=== PATIENT | female | born 1930 | race Caucasian/White ===

== ENCOUNTER 2018-07-19 09:00 | Inpatient (IN) | payer MEDICARE ==
[~2018-07-19] VITALS: Ht 162.6 cm; Wt 55.8 kg
--- OUTSIDE RECORDS SUMMARY | ~2018-07-19 | XMS | Clinical Summary ---
Demographics + + + | Address | [address] | | | [place] [address] | + + + | Home Phone | | + + + | Preferred Language | Unknown | + + + | Marital Status | | + + + | Holiness Affiliation | Unknown | + + + | Race | Unknown | + + + | Ethnic Group | Unknown | + + + Author + + + | Author | [facility] | | | and [place] | + + + | Organization | [facility] | | | and [place] | + + + | Address | Unknown | + + + | Phone | Unavailable | + + + Support + + +---------+ + | Name | Relationship | Address | Phone | + + +---------+ + | Jina Jha | NORMA | Unknown | | + + +---------+ + Care Team Providers + +------+ + | Care Instructor Adjunct Surgical Technician Name | Role | Phone | + +------+ + | Pcp, Prov Inactive | PP | | + +------+ + Allergies + + + + + + | Active Allergy | Reactions | Severity | Noted | Comments | | | | | Date | | + + + + + + | Codeine | Nausea And Vomiting | | 10/19/19 | | | | | | 15 | | + + + + + + Medications + + + +---------+------+------+-------+ | Medication | Sig | Dispensed | Refills | Star | End | Statu | | | | | | t | Date | s | | | | | | Date | | | + + + +---------+------+------+-------+ | ALPHA LIPOIC ACID | Take 1 tablet by | | 0 | | | Activ | | PO | mouth Daily. | | | | | e | + + + +---------+------+------+-------+ | Cholecalciferol | Take 2,000 Units by | | 0 | | | Activ | | (VITAMIN D-3) 2000 | mouth Daily. | | | | | e | | units CAPS | | | | | | | + + + +---------+------+------+-------+ | thiamine (VITAMIN | Take 100 mg by mouth | | 0 | | | Activ | | B-1) 100 mg tablet | Daily. | | | | | e | + + + +---------+------+------+-------+ | Ranitidine HCl | Take 1 tablet by | | 0 | | | Activ | | (RANITIDINE 75 PO) | mouth Daily. | | | | | e | + + + +---------+------+------+-------+ | nitroglycerin | Place 1 tablet under | 25 | 0 | 08/3 | | Activ | | (NITROSTAT) 0.4 mg | the tongue every 5 | tablet | | 1/20 | | e | | SL | minutes as needed | | | 15 | | | | tabletIndications: | for Chest pain. | | | | | | | Coronary artery | Place 1 tablet under | | | | | | | disease due to | the tongue every 5 | | | | | | | calcified coronary | minutes as needed | | | | | | | lesion | for Chest pain. | | | | | | + + + +---------+------+------+-------+ | aspirin 325 mg | Take 325 mg by mouth | | 0 | | | Activ | | tablet | Daily. | | | | | e | + + + +---------+------+------+-------+ | | Take 1 tablet by | | 0 | | | Activ | | diphenhydrAMINE-acet | mouth nightly as | | | | | e | | aminophen (TYLENOL | needed. | | | | | | | PM EXTRA STRENGTH) | | | | | | | | 25-500 MG TABS | | | | | | | + + + +---------+------+------+-------+ | atorvaSTATin | Take 1 tablet by | 90 | 1 | 01/0 | | Activ | | (LIPITOR) 20 mg | mouth nightly. | tablet | | 5/20 | | e | | tabletIndications: | | | | 16 | | | | Mixed hyperlipidemia | | | | | | | + + + +---------+------+------+-------+ | benazepril | Take 1 tablet by | 90 | 1 | 01/0 | | Activ | | (LOTENSIN) 10 mg | mouth Daily. 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 | | + + + | Bilateral carotid artery stenosis | 11/16/2014 | + + + | Chronic kidney disease, stage III (moderate) | 11/16/2014 | + + + | Decreased GFR | 11/15/2014 | + + + | Bilateral carotid artery stenosis | 10/26/2014 | + + + | Routine general medical examination at a health care facility | 10/18/2014 | + + + + + | Overview: DEXA: Never | | Colonoscopy: Never | | Immunizations: UTD | | Mammo: Several years | | Pap: Several years | | Occupation: Retired | | Marital Status: | | Children: 1 | | Exercise: Normal activities | | Sunscreen: Never | | Caffeine: 4 cups daily | | Seatbelt Use: 100% | + + + + + | Essential hypertension | 10/18/2014 | + + + | Bilateral carotid bruits | 10/18/2014 | + + + | COPD (chronic obstructive pulmonary disease) | 10/18/2014 | + + + | Nicotine dependence, uncomplicated | 10/18/2014 | + + + Immunizations + + + + | Name | Dates Previously Given | Next Due | + + + + | INFLUENZA QUADR | 08/02/2014 | | | W/PRES | | | | (PED/ADOL/ADULT) | | | | MULTIDOSE | | | + + + + Family History + + +------+ + | Medical History | Relation | Name | Comments | + + +------+ + | Early | Brother | | | + + +------+ + | Early | Father | | | + + +------+ + | Heart disease | Father | | | + + +------+ + | Early | Mother | | | + + +------+ + | Heart disease | Mother | | | + + +------+ + + +------+ + + | Relation | Name | Status | Comments | + +------+ + + | Brother | | | | + +------+ + + | Father | | | | + +------+ + + | Mother | | | | + +------+ + + Social History + +-------+ +--------+ + | Tobacco Use | Types | Packs/Day | Years | Date | | | | | Used | | + +-------+ +--------+ + | Former Smoker | | 0.1 | 41 | Quit: 10/19/2014 | + +-------+ +--------+ + + +---+---+---+ | Smokeless Tobacco: | | | | | Never Used | | | | + +---+---+---+ + + | Tobacco Cessation: Ready to Quit: Yes | | Comments: Patient is working on quiting smoking. 3 cigs daily | + + + + +---------+ + | Alcohol Use | Drinks/We | oz/Week | Comments | | | ek | | | + + +---------+ + | No | 0 | 0.0 | | | | Standard | | | | | drinks or | | | | | | | | | | equivalen | | | | | t | | | + + +---------+ + + + + | Sex Assigned at | Date Recorded | | | | + + + | Not on file | | + + + + + + + | Job Start Date | Occupation | Industry | + + + + | Not on file | Not on file | Not on file | + + + + + + + + | Travel History | Travel Start | Travel End | + + + + + + | No recent travel history available. | + + Last Filed Vital Signs + + + + | Vital Sign | Reading | Time Taken | + + + + | Blood Pressure | 124/62 | 05/12/2015912 PDT | + + + + | Pulse | 89 | 05/12/2015912 PDT | + + + + | Temperature | 36.8 C (98.3 F) | 05/12/2015912 PDT | + + + + | Respiratory Rate | 18 | 05/12/2015912 PDT | + + + + | Oxygen Saturation | 99% | 05/12/2015912 PDT | + + + + | Inhaled Oxygen | - | - | | Concentration | | | + + + + | Weight | 55.4 kg (122 lb 1.6 | 05/12/2015912 PDT | | | oz) | | + + + + | Height | 162.6 cm (5' 4") | 05/12/2015912 PDT | + + + + | Body Mass Index | 20.96 | 05/12/2015912 PDT | + + + + Plan of Treatment + + + + + | Health Maintenance | Due Date | Last Done | Comments | + + + + + | Vaccine: | | | | | Dtap/Tdap/Td (1 - | 9 | | | | Tdap) | | | | + + + + + | Vaccine: Zoster (1 | | | | | of 2) | 0 | | | + + + + + | Vaccine: | | | | | Pneumococcal 65+ | 5 | | | | Low/Medium Risk (1 | | | | | of 2 - PCV13) | | | | + + + + + | Vaccine: Influenza | | 08/02/2014 | | | (Season Ended) | 9 | | | + + + + + Results Not on filefrom Last 3 Months Insurance + +--------+ +--------+ +---------+--------+ | Payer | Benefi | Subscriber | Effect | Phone | Address | Type | | | t Plan | ID | kelly | | | | | | / | | Dates | | | | | | Group | | | | | | + +--------+ +--------+ +---------+--------+ | MEDICARE | MEDICA | [id number] | 04/18/18 | [phone] | | Medica | | | RE | | 95-Pre | 5 | | re | | | PART A | | sent | | | | | | AND B | | | | | | + +--------+ +--------+ +---------+--------+ + +--------+ +--------+ + + | Guarantor Name | Accoun | Relation to | Date | Phone | Billing Address | | | t Type | Patient | of | | | | | | | | | | + +--------+ +--------+ + + | Leena Jha | Person | Self [birth year] | [address] | | | al/Fam | | 1931 | [phone] | [place] [address] | | | paula | | | 5 (Home) | | + +--------+ +--------+ + + Advance Directives Patient has advance care planning documents on file. For more information, please contact:[facility] [address]
--- OUTSIDE RECORDS SUMMARY | ~2018-07-19 | XMS | Clinical Summary ---
Demographics + + + | Address | [address] | | | [place] [address] | + + + | Home Phone | | + + + | Preferred Language | Unknown | + + + | Marital Status | | + + + | Congregation Affiliation | Unknown | + + + | Race | Unknown | + + + | Ethnic Group | Unknown | + + + Author + + + | Author | [facility] | | | and [place] | + + + | Organization | [facility] | | | and [place] | [...] Team Providers + +------+ + | Care Rheologist Name | Role | Phone | + [...] +--------+ +---------+--------+ | MEDICARE | MEDICA | [id number] | 04/18/18 | [phone] | | Medica [...] Person | Self | [birth year] | [address] | | | al/Fam | | 1931 | [phone] | [place] [address] | | | paula | | | 5 (Home) | | + +--------+ +--------+ + + Advance Directives Patient has advance care planning documents on file. For more information, please contact:[facility] [address] [place] [address]
--- OUTSIDE RECORDS SUMMARY | ~2018-07-19 | XMS | Clinical Summary ---
Demographics + + + | Address | [address] | | | [place] [address] | + + + | Home Phone | | + + + | Preferred Language | Unknown | + + + | Marital Status | | + + + | Confucianism Affiliation | Unknown | + + + | Race | Unknown | + + + | Ethnic Group | Unknown | + + + Author + + + | Author | [facility] | | | and [place] | + + + | Organization | [facility] | | | and [place] | [...] Team Providers + +------+ + | Care Cellophane Wrapping Examiner Name | Role | Phone | + [...] +--------+ +---------+--------+ | MEDICARE | MEDICA | [id number] | 04/18/18 | [phone] | | Medica [...] Person | Self | [birth year] | [address] | | | al/Fam | | 1931 | [phone] | [place] [address] | | | paula | | | 5 (Home) | | + +--------+ +--------+ + + Advance Directives Patient has advance care planning documents on file. For more information, please contact:[facility] [place] [address]
[~2018-07-19 09:00] MED LIST: ADVAIR 250-501 EACH INH; ASPIRIN EC325 MG PO; DELTASONE20 MG PO; IPRAT-ALBUT 0.5-3 ML INH; NICORETTE4 M2 BUCCAL; PREDNISONE20 MG PO; SPIRIVA18 MCG INH; VENTOLIN HFA18 GM INH; ZANTAC 7575 MG PO; ZITHROMAX250 MG PO; ZOFRAN ODT4 MG PO
--- OUTSIDE RECORDS SUMMARY | 2018-07-19 09:04 | XMS ---
PreManage Notification: TAMERA CANDELARIA Security Rn Clinician Events No recent Security Events currently on file CRITERIA MET - [facility] - Has Care Guidelines CARE PROVIDERS VASYL AGUILERA Hospitalist 05/20/2018-Current PHONE: Unknown Selene has no Care Guidelines for this patient. Care History Medical/Surgical 05/20/2018 [facility] - Patient is currently established with [facility]. If patient is seen in the ED during business hours. Please contact CHWs at [facility]. Care Recommendation: This patient has had 5 or more Emergency Department visits in the last 12 months.\T\nbsp; Patient requires education on the scope and purpose of the ED as an acute care provider not a Primary Care Provider and should not be utilized for chronic conditions.\T\nbsp; These are guidelines and the provider should exercise clinical judgment when providing care. E.D. VISIT COUNT (12 MO.) 3 [facility] TOTAL 3 NOTE: Visits indicate total known visits. ED/UCC VISIT TRACKING (12 MO.) 07/19/2018 09:01 [facility] TYPE: Emergency COMPLAINT: - SOB 05/14/2018 09:08 [facility] [place] TYPE: Emergency COMPLAINT: - SOB, COUGH 11/30/2017 13:17 [facility] [place] TYPE: Emergency COMPLAINT: - DIFFICULTY BREATHING DIAGNOSES: - Chronic obstructive pulmonary disease with (acute) exacerbation - Nicotine dependence, unspecified, uncomplicated - FPC (current) use of aspirin - Cough - Allergy status to narcotic agent status INPATIENT VISIT TRACKING (12 MO.) 05/14/2018 09:[address] [facility] [place] TYPE: Observation COMPLAINT: - ACUTE/CHRONIC COPD DIAGNOSES: - Atherosclerotic heart disease of [place] coronary artery without angina pectoris - Presence of coronary angioplasty implant and graft - Emphysema, unspecified - Personal history of nicotine dependence - Shortness of breath - intermediate designer (current) use of aspirin - Allergy status to narcotic agent status - Other terminal block assembler (current) drug therapy - FPC (current) use of inhaled steroids [email or web address]
--- NOTE | 2018-07-19 15:01 | EKG ---
[facility] [address] [facility] [address] [place] [address] Signed Sinus tachycardia Left axis deviation Low voltage QRS Abnormal ECG When compared with ECG of 30-NOV-2017 13:25, ST less depressed in Inferior leads Nonspecific T wave abnormality no longer evident in Anterior leads Confirmed by ELKE LOPES DO ([id number]) on 07/19/2018 3:01:11 PM Electronically Signed By: ELKE LOPES DO 07/19/18 1501 PATIENT NAME: TAMERA CANDELARIA SANDRA Electrocardiogram DATE OF : [birth year] PHYSICIAN: ELKE LOPES DO REPORT #: [id number] REPORT IS CONFIDENTIAL AND NOT TO BE RELEASED WITHOUT AUTHORIZATION
--- NOTE | 2018-07-19 15:58 | NUR ---
report from soren lópez at this time.
--- NOTE | 2018-07-19 16:05 | NUR ---
pt arrived to m/s room 114 at this time, alert and oriented, up to bathroom.
--- NOTE | 2018-07-19 16:55 | NUR ---
pt sitting at side of bed watching tv, no distress at this time at rest, 2l oxygen per n.c.
--- NOTE | 2018-07-19 19:10 | NUR ---
SHIFT REPORT RECIEVD. PATIENT RESTING IN BED. REPORTS FEELING VERY SOB AFTER AMBULATING TO THE BATHROOM RECENTLY. DISCUSSED USE OF BSC FOR THE NIGHT. HYDRO EXCAVATION OPERATOR MAY LOCATED ONE FOR THE PATIENT'S ROOM. NO OTHER NEEDS AT THIS TIME. PATIENT APPEARS TO BE IN NO RESPIRTORY DISTRESS AT THIS TIME.
--- NOTE | 2018-07-19 20:30 | NUR ---
EVENING MEDS PROVIDED PER ORDER. PATIENT APPEARED TO BE SLEEPING SOUNDLY WHEN RN ENTERED ROOM. WOKE EASILY TO VOICE. PATIENT DENIES FEELING SOB AT THIS TIME. AUDIBLE WHEEZE HEARD. EXPIRTORY WHEEZES HEARD THROUGHOUT. 2L NC IN PLACE. PATIENT DENIES PAIN OR TOILETING NEEDS. REMINDED PATIENT TO USE CALL LIGHT. BED ALARM ACTIVE. CALL LIGHT IN REACH.
--- NOTE | 2018-07-19 20:31 | NUR ---
CHARGE NURSE ROUNDING NOTE:. AWAKE, ALERT AND ORIENTED. O2 2L NC, DENIES SOB. WARM WATER AND FRESH WATER W/O ICE GIVEN. CALL LIGHT AND FLUIDS AT BEDSIDE. RT IN ROOM. PT GETTING NEB TX
--- NOTE | 2018-07-19 22:15 | NUR ---
PATIENT APPEARS TO BE SLEEPING COMFORTABLE. RR 22. 2L NC IN PLACE. CALL LIGHT IN REACH.
--- NOTE | 2018-07-19 23:08 | NUR ---
HELPED PT TO THE BSC AND BACK TO BED. BED ALARM ON. BEDSIDE TABLE AND CALL LIGHT IN REACH. PT NEEDS NOTHING MORE AT THIS TIME. I&OS CHARTED.
--- NOTE | 2018-07-20 00:45 | NUR ---
PATIENT APPEARS TO BE SLEEPING SOUNDLY. RR 22. 2L NC IN PLACE. CALL LIGHT IN REACH.
--- NOTE | 2018-07-20 02:30 | NUR ---
VITALS AND I&OS DONE AN CHARTED. HELPED PT TO THE BSC AND BACK TO BED. BEDSIDE TABLE AND CALL LIGHT IN REACH. PT REQUESTED A BREATHING TREATMENT. I CALLED RT TO COME TO THE FLOOR.
--- NOTE | 2018-07-20 03:08 | NUR ---
PATIENT'S VS STABLE. TITRATED TO 1L NC AT 92% O2 SAT. PATIENT UP TO BSC. TOLERATED WELL. LUNGS ARE COARSE AND DIMINISHED THROUGHOUT. PATIENT REQUEST NEB TREATMENT AND IS SITTING UP AT EDGE OF BED. RT CALLED. PATIENT DENIES FURTHER NEEDS. CALL LIGHT IN REACH.
--- NOTE | 2018-07-20 05:00 | NUR ---
PATIENT RESTING IN BED. APPEARS TO BE SLEEPING SOUNDLY. RR 18. 1L NC IN PLACE.
--- NOTE | 2018-07-20 05:44 | NUR ---
PATIENT SLEPT WELL THIS SHIFT. REPORTS FEELING LESS SOB WITH EACH ASSESSMENT. LUNG SOUNDS COARSE WITH SOME EXPIRTORY WHEEZES. ONGOING DRY COUGH. SCHEDULED NEBS. TITRATED TO 1L NC. SBA W/FWW. SOB WITH ACTIVITY. HEART HEALTHY DIET. PATIENT AAOX4, USES CALL LIGHT APPROPRIATELY.
--- NOTE | 2018-07-20 06:03 | NUR ---
MORNING MEDS PROVIDED. VS STABLE. PATIENT TOLERATING 1L NC AT 91% O2 SAT AFTER TRANSFERING TO BS AND BACK. PATIENT REPORTS IMPROVED SHORTNESS OF BREATH. LUNGS ARE COARSE AND DIMINISHED. PATIENT'S URINE OUTPUT 100ML FOR LAST 4 HOURS. ENCOURAGED TO DRINK FLUIDS NOW THAT SHE IS AWAKE.
--- NOTE | 2018-07-20 08:25 | NUR ---
PT FINISHED NEB TX, SITTING UP IN BED, ALERT AND ORIENTED. PT REPORTS NO PAIN. WAITING FOR BREAKFAST FOR MED PASS, AM ASSESSMENT COMPLETE.
--- NOTE | 2018-07-20 09:22 | NUR ---
PT SITTING TO SIDE OF BED WAITING FOR BREAKFAST. SHE SAID SHE HAS ORDERED TWICE. BREAKFAST CALLED DOWN BY THIS RN. APPLESAUCE SNACK GIVEN FOR NOW. AM MED PASS TO BE GIVEN NOW. PT ON 1L OXYGEN SATURATION 93% SPOT CHECK
--- NOTE | 2018-07-20 11:21 | NUR ---
PT U AMBULATING IN HALLS AFTER TAKING SHOWER.
--- NOTE | 2018-07-20 11:50 | NUR ---
PHYSICAL THERAPY, PT AMBULATED IN HALLS REQUIRED 3L OXYGEN WITH AMBULATION, WAS ABLE TO TITRATE DOWN TO 1L OXYGEN AT REST, TO MAINTAIN GREATER THAN 90% OXYGEN SATURATION.
--- NOTE | 2018-07-20 12:37 | NUR ---
PT BACK TO BED FROM RECLINER. NO COMPLAINTS OR ANYOTHER REQUESTS AT THIS TIME.
--- NOTE | 2018-07-20 13:38 | NUR ---
pt resting in bed watching tv. iv fluids started.
--- NOTE | 2018-07-20 17:44 | NUR ---
PT BACK FROM CT SCANN FINISHED DINNER WATCHING SPORTS ON TV.
--- NOTE | 2018-07-20 17:45 | NUR ---
PT HAS BEEN UP THIS AM TO SHOWER AND UP T AMBULATE IN HALLS WITH PHYSICAL THERAPY. PT HAS BEEN SATURATING GREATER THAN 90% ON 1L OXYGEN AT REST AND 3L OXYGEN WITH ACTIVITY. SHE HAS POSITIVE D-DIMER TODAY AND CT SCAN CHECK FOR P.E., SHE HAS NOT REPORTED ANY PAIN, TOLERATED HER ORDERED DIET WELL. BORDER LINE URINE OUT, IVF STARTED TODAY.
--- NOTE | 2018-07-20 19:05 | NUR ---
SHIFT REPORT RECEIVED. PATIENT RESTING IN BED. IV FLUIDS PER ORDER. SITE WNL. PATIENT DENIES ANY NEEDS. DISCUSSED PLAN FOR TOMORROWS ECHO AND ULTRASOUND.
--- NOTE | 2018-07-20 20:00 | NUR ---
PATIENT'S IV FREQUENTLY ALARMING DISTAL OCCLUSION. SITE APPEARS RED AND LEAKING. SITE FLUSHES WITH DIRECT PRESSURE BUT UNABLE TO INFUSE USING THE IV PUMP. THIS RN FAILED [address] IV SITE. MANAGEMENT ACCOUNTS MANAGER CALLED FOR ASSISTANCE. PATIENT UP TO THE HEATHER YANEZ W/FWW. PATIENT BACK TO SITTING ON BEDSIDE. RT IN ROOM FOR NEB TREATMENT.
--- NOTE | 2018-07-20 21:14 | NUR ---
STUDIO OPERATIONS MANAGER REDRESSED IV SITE AND STATED IT WAS WORKING WELL. SINCE THEN THE IV PUMP HAS ALARMED WITH DISTAL OCCULSION FREQUENTLY. ATTEMPTS TO REPOSITION THE SITE WERE UNSUCESSFUL. PATIENT STATES "LET'S JUST DO A NEW ONE, I'M NEVER GOING TO GET ANY SLEEP LIKE THIS". AMANDA RN CONTACTED FOR ASSISTANCE.
--- NOTE | 2018-07-20 21:35 | NUR ---
ROUNDED CHARGE. AMANDA RN IN ROOM TO START IV. PATIENT DENIES ANY COMMENTS, QUESTIONS, OR CONCERNS. PATIENT DENIES ANY NEEDS AT THIS TIME. CALL LIGHT IN REACH.
--- NOTE | 2018-07-20 21:45 | NUR ---
NEW IV PLACED BY AMNADA SPRAGUE. PATIENT TOLERATED WELL. IV FLUIDS FINISHING PER ORDER. EVENING MEDS PROVIDED. PATIENT RESTING IN BED. LUNG SOUNDS ARE DIMINISHED BUT CLEAR. TOLERATING 2L NC. PATIENT DENIES PAIN BUT HAS A DRY COUGH. ENCOURAGED TO DRINK FLUIDS. NO OTHER CONCERNS AT THIS TIME. VS STABLE. CALL LIGHT IN REACH.
--- NOTE | 2018-07-20 23:04 | NUR ---
PATIENT UP WITH RENE MAY TO USE THE BATHROOM. PATIENT REQUEST A NEB TREATMENT WHEN SHE IS FINISHED. RT CONTACTED. PATIENT DOES NOT APPEAR TO BE IN ANY TYPE OF DISTRESS.
--- NOTE | 2018-07-21 00:55 | NUR ---
PATIENT APPEARS TO BE SLEEPING. RR 18. 2L NC IN PLACE.
--- NOTE | 2018-07-21 02:15 | NUR ---
PATIENT APPEARS TO BE SLEEPING. RR 20. 2L NC IN PLACE.
--- NOTE | 2018-07-21 05:36 | NUR ---
PATIENT WOKE EASILY WHEN RN ENTERED ROOM. ASSISTED PATIENT UP TO THE BATHROOM. PATIENT HAS GOOD URINE OUTPUT. PATIENT REPORTS HER BREATHING FEELS MUCH BETTER BUT HAS AN ONGOING COUGH. SIP OF WATER FOR COUGH PROVIDED. OTHER THAN THAT PATIENT IS NPO FOR ULTRASOUND THIS MORNING. PATIENT AWARE. VS DONE. PATIENT IS TOLERATING 2L NC WELL. TITRATED TO ROOM AIR, WILL RE-EVALUATE IN 15MINS. PATIENT SITTING UP AT EDGE OF BED. DENIES FURTHER NEEDS.
--- NOTE | 2018-07-21 05:41 | NUR ---
PATIENT SLEPT WELL THIS SHIFT. REPORTS IMPROVEMENT IN BREATHING FROM YESTERDAY. SCHEDULED NEBS PROVIDED. 2L NC OVERNIGHT. ATTEMPTS TO TITRATE TO ROOM AIR TODAY. LUNGS ARE DIMINISHED THROUGHOUT. ONGOING DRY COUGH. PATIENT NPO FOR ULTRASOUND THIS MORNING. IV SL. URINE OUTPUT QS. VS STABLE. 1PA W/FWW.
--- NOTE | 2018-07-21 06:14 | NUR ---
PATIENT 88% O2 SAT ON ROOM AIR. 1L NC PLACE, PATINE 91% O2 SAT AT THIS TIME. DENIES FEELING SOB ON ROOM AIR. APPEARS COMFORTABLE WITH NONLABORED BREATHING.
--- NOTE | 2018-07-21 07:22 | NUR ---
BEDSIDE REPORT.. PT RESTING IN BED RR 18 BPM NO DISTRESS NOTED, PT APPEARS TO BE SLEEPING, U.S. HEADING INTO PT ROOM FOR ABD U.S. PER MD ORDER.
--- NOTE | 2018-07-21 08:35 | NUR ---
PATIENT IN BED RESTING. CALL LIGHT IN REACH. NO FURTHER NEEDS AT THIS TIME.
--- NOTE | 2018-07-21 08:51 | NUR ---
ULTRASOUND IN ROOM NOW
--- NOTE | 2018-07-21 09:10 | NUR ---
PT MOTHER CALLED FOR UPDATE.
--- NOTE | 2018-07-21 09:20 | NUR ---
pt sitting up at bedside eating breakfast. pt on 2l oxygen. no complaints about pain or nausea, pt i.v. is s/l at this time
--- NOTE | 2018-07-21 09:54 | NUR ---
PATIENT IN BED RESTING. FRESH WATER GIVEN. NO VOID, WILL CHECK BACK IN. CALL LIGHT IN REACH. NO FURTHER NEEDS AT THIS TIME.
[2018-07-21] MEDS ORDERED: DOXYCYCLINE HY100 MG PO (12:28)
[2018-07-21] MEDS ORDERED: PREDNISONE20 MG PO (12:30)
--- NOTE | 2018-07-21 12:41 | NUR ---
pt up ambulated two laps around medical unit with physical therapy oxygen saturation 100% upon return to room. pt had increased work of breathing, she reports she never walks that far at home.
--- NOTE | 2018-07-21 13:33 | NUR ---
PATIENT IN BED RESTING. FRESH WATER GIVEN. B/P LOW FOR PATIENT, RN NOTIFIED. CALL LIGHT IN REACH. NO FURTHER NEEDS AT THIS TIME.
--- NOTE | 2018-07-21 14:15 | NUR ---
PT STANDBY ASSIST UP TO BATHROOM VOIDED 150ML. NO COMPLAINTS OR CONCERNS WAITING HER GRANDAUGHPULLIAM TO COME TO PICK HER UP FOR D/C
--- NOTE | 2018-07-21 14:17 | NUR ---
PT IS ALERT, ORIENTED AND DUE FOR DC THIS AFTERNOON. SHE IS VERY PLEASANT, AND THANKED ME FOR VISITING. DR LOPES CAME IN, EXTENDED A BLESSING. WILL FOLLOW NEEDED
--- NOTE | 2018-07-21 14:36 | NUR ---
IV TAKEN OUT UPON RN REQUEST. CATH IN TACT AND LOOKS GOOD, RN NOTIFIED. CALL LIGHT IN REACH. NO FURTHER NEEDS AT THIS TIME.
--- NOTE | 2018-07-21 15:56 | NUR ---
PT GIVEN DISCHARGE PACKET AND EDUCATION, [facility] IN [facility] FOR ALL EDUCATIONS. WHEN TO SEEK MEDICAL ATTENTION WITH COPD SIGNS AND SYMPTOMS, FOLLOW UP APPOINTMENT, MEDICATIONS LAST AND NEXT DOSE. PRECAUTIONS AND SIDE EFFECTS OF MEDICATIONS EDCUATIONS GIVEN BY WARREN FROM PHARMACY. PT IS 99% OXYGEN SATURATION ON ROOM. AMBUALTES STANDBY ASSIST. I.V. SITES REMOVED X2 TIP INTACT WNL.
== END 2018-07-21 15:45 | disposition home or self-care (01) | DRG 189 ==
LOC: ED 09:00 → MS 15:39
PROVIDERS: ADMIT Student in an Organized Health Care Education/Training Program
DX: J96.01 Acute respiratory failure with hypoxia (principal); I21.A1 Myocardial infarction type 2; J44.1 Chronic obstructive pulmonary disease with (acute) exacerbation; I71.4 Abdominal aortic aneurysm, without rupture; E04.1 Nontoxic single thyroid nodule; I25.10 Atherosclerotic heart disease of native coronary artery without angina pectoris; K21.9 Gastro-esophageal reflux disease without esophagitis; Z87.891 Personal history of nicotine dependence; Z66 Do not resuscitate; Z88.5 Allergy status to narcotic agent; Z79.82 Long term (current) use of aspirin; Z79.51 Long term (current) use of inhaled steroids; Z79.52 Long term (current) use of systemic steroids; Z79.899 Other long term (current) drug therapy
CPT/HCPCS: 36415; 71045; 71260; 80048; 80053; 83735; 83880; 84484; 85025; 85379; 93005; 93010; 93306; 94640; 94668; 96374; 97116; 97162; 99285-25; J1650; J1940; J2920; J2930; J7120